=== PATIENT | female | born 1980 | race Caucasian/White ===

== ENCOUNTER 2023-04-26 16:07 | Emergency (ER) | payer OTHER, SELFPAY ==
[2023-04-26 16:14] VITALS: BP 130/82; PULSE 101; RESP 16; TEMP 36.6; O2SAT 98; BMI 45.4
--- NOTE | 2023-04-26 17:01 | XRR_ITS ---
PROCEDURE INFORMATION: Exam: XR Left Elbow Exam date and time: 04/26/2023 5:40 PM Age: 42 years old Clinical indication: Pain; Upper arm; Left; Additional info: Swollen TECHNIQUE: Imaging protocol: Radiologic exam of the left elbow. Views: 3 or more views. COMPARISON: No relevant prior studies available. FINDINGS: Bones/joints: No elbow joint effusion. No acute fracture or dislocation. No periosteal reaction or osteomyelitis. Olecranon bursa appears distended in this may reflect olecranon bursitis, hematoma for infected bursa. Soft tissues: There is abundant subcutaneous edema. No foreign body. XR/XR elbow LT min 3V* [id number] IMPRESSION: 1. Abundant soft tissue edema and enlarged olecranon bursa. No joint effusion. 2. No acute bony abnormality.
[2023-04-26] MEDS: HYDROcodone-acetaminophen 5-325 mg Tablet 1 TAB PO (18:10)
--- NOTE | 2023-04-26 22:52 | ED_ITS ---
HPI - Extremity Problem General: Chief complaint: Extremity Problem,Nontraumatic Stated complaint: Lt elbow inj Time Seen by Provider: 04/26/23 17:27 Source: patient Mode of arrival: ambulatory Limitations: no limitations History of Present Illness: Patient presents to the emergency department today for evaluation treatment of left elbow swelling and redness. Patient states she has noted progressive swelling and redness to the area over the last several days. She has not been running any fevers. She reports tenderness and tightness in the joint with flexion extension but, still is able to perform range of motion. She reports occasional tingling in her fingers. No known trauma but does have a very small abrasion to the posterior elbow region. Review of Systems General: Reports: 10 or more systems reviewed and unremarkable except in HPI and below [facility] Female Reproductive History: Date of last menstrual period: 04/09/23 Physical Exam Const: COMMON NORMALS: no acute distress, patient oriented x3 and alert HENMT: COMMON NORMALS: normocephalic, atraumatic and hearing grossly normal bilaterally HEAD & SCALP: normocephalic and atraumatic Eye: COMMON NORMALS: Equal, round and reactive pupils present, EOMs intact bilaterally and conjunctivae normal CONJUNCTIVA: Yes conjunctivae normal PUPIL: Yes Equal, round and reactive pupils present Neck/C-Spine: COMMON NORMALS: full ROM and no JVD Lymph: LYMPHATIC: no lymphadenopathy noted Resp: COMMON NORMALS: normal respiratory effort, No retractions and No use of accessory muscles Cardio: COMMON NORMALS: no JVD and regular rate RATE: regular rate Extremity: NARRATIVE EXTREMITY EXAM: Patient is able to show full extension and flexion capabilities of the left elbow. She is able to pronate and supinate the left hand without difficulty. Full flexion extension of the fingers on the left side. Neuro: COMMON NORMALS: patient oriented x3 SENSORIUM/ORIENTATION: Yes alert Psych: COMMON NORMALS: mental status grossly normal, Normal thought process present, cooperative and normal affect THOUGHT PROCESS: Normal thought process present Skin: COMMON NORMALS: no rashes or lesions noted and turgor normal NARRATIVE SKIN EXAM: Patient has diffuse mild to moderate erythema noted extending from the posterior proximal forearm extending just superiorly to the left elbow. There is generalized edema in the posterior portion of the elbow and forearm but skin is still soft. No areas of induration and no fluctuance appreciated. GENERAL SKIN EXAM: no rashes or lesions noted and turgor normal Course Vital Signs: Vital signs: Vital Signs Temperature 97.9 F 04/26/23 16:14 Pulse Rate 101 H 04/26/23 16:14 Respiratory Rate 16 04/26/23 16:14 Blood Pressure 130/82 04/26/23 16:14 Pulse Oximetry 98 04/26/23 16:14 Oxygen Delivery Me thod Room Air 04/26/23 16:14 MDM - Extremity (Nontraumatic) Medical Decision Making Patient is afebrile with full range of motion of the joint. X-ray shows no acute inflammation within the joint and noted soft tissue inflammation is present. Patient most likely has a superficial cellulitis at this time and we did initiate treatment with doxycycline. Patient is given naproxen and tizanidine for pain. She was given strict return precautions for continued spre ading redness, decreased range of motion to the joint or, new onset fever. Patient should have follow-up appointment with primary care next week for wound check. Patient verbalized understanding and agreement to treatment plan. Differential Diagnosis Likely cellulitis; Unlikely herpes zoster, gout or deep venous thrombosis of upper extremity Lab Data Radiology Impressions Elbow X-Ray 04/26/23 17:01 IMPRESSION: 1. Abundant soft tissue edema and enlarged olecranon bursa. No joint effusion. 2. No acute bony abnormality. Discharge Plan Discharge Patient Disposition: Home Clinical Impression: Cellulitis Condition: Stable Prescriptions: New doxycycline hyclate 100 mg tablet 100 mg PO BID 10 Days Qty: 20 0RF naproxen 500 mg tablet 500 mg PO BID PRN (Reason: pain) Qty: 20 0RF tizanidine 4 mg capsule 4 mg PO Q8H PRN (Reason: muscle spasticity) Qty: 20 0RF Discharge Orders: Discharge ED (Routine); Ordered 04/26/23 Ordered By: Maria A Paz Discharge Diet: Usual diet Discharge Activity: Limit activity as instructed Patient Instructions: Cellulitis (ED) Activity Restrictions/Additional Instructions: Exam today appears consistent with a spreading skin infection. This can increase the amount of swelling and pressure put on to your elbow. This can cause decreased range of motion and tingling sensation down the arm into the fingers. It is also very stiff and sore. We are going to start you on antibiotics which I would like you to get your first dose in tonight as soon as you get a picked up from the pharmacy. We have also provided you medication to help with inflammatory pain and musculoskeletal pain as well. I am giving you a note for your provider to request light duty for the next several days to prevent over use of the joint and allow it to rest. Carefully watch for any continued spreading redness greater than 24 hours after starting your antibi otics. Also, if you develop inability to flex or extend the joint or, you spike a fever we do recommend returning here to the emergency department for reevaluation. 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
== END 2023-04-26 18:23 | disposition home or self-care (01) ==
PROVIDERS: Emergency Provider Physician Assistant
DX: L03.114 Cellulitis of left upper limb (principal)
CPT/HCPCS: 73080; 99283